=== PATIENT | male | born 1955 ===

== ENCOUNTER 2022-05-06 21:45 | Inpatient (IN) | payer BC, MEDICARE ==
[2022-05-06 22:21] LABS: #Monocytes 0.7 10x3/uL (0.0-1.1); #Neutrophils 7.9 10x3/uL (1.5-8.4); %Basophils 0.3 % (0.0-2.0); %Eosinophils 0.1 % (0.0-6.0); %Lymphocytes 26.2 % (18.0-47.0); %Monocytes 5.7 % (0.0-10.0); %Neutrophils 67.4 % (40.0-75.0); Hemoglobin 17.1 g/dL (13.5-17.5); Mean Corpuscular HGB CONC 32.6 g/dL (32.0-36.0); Mean Corpuscular Hemoglobin 27.9 pg (27.0-33.0); Mean Corpuscular Volume 85.8 fl (81.2-95.1); Mean Platelet Volume 11.4 fl (7.4-10.4); Platelet Count 223 10x3/uL (150-450); Red Blood Cell (RBC) Count 6.12 10x6/uL (4.32-5.72); White Blood Cell (WBC) Count 11.7 10x3/uL (3.5-10.5)
[2022-05-06 22:34] LABS: ALT (SGPT) 30 U/L (8-55); AST (SGOT) 151 U/L (5-34); Albumin 4.5 g/dL (3.4-4.8); Alkaline Phosphatase 65 U/L (40-110); Anion Gap 26 mmol/L (10-20); BUN (Urea Nitrogen) 19 mg/dL (8.4-25.7); Calc. Creatinine Clearance 0 mL/min (70-130); Calcium 10.1 mg/dL (7.8-10.44); Carbon Dioxide 23 mmol/L (23-31); Chloride 96 mmol/L (98-107); Estimated GFR 40; Globulin 3.6 g/dL (2.4-3.5); Glucose 308 mg/dL (80-115); Magnesium 2.3 mg/dL (1.6-2.6); Potassium 4.1 mmol/L (3.5-5.1); Protein, Total 8.1 g/dL (5.8-8.1); Sodium 141 mmol/L (136-145)
[2022-05-06 22:35] LABS: INR-International Normal Ratio 1.1; PTT 29.3 sec (22.0-33.0); Prothrombin Time 11.4 sec (9.5-12.1)
[2022-05-06 22:42] LABS: D-Dimer Test 0.43 mg/L FEU (0.19-0.50)
[2022-05-06] MEDS ORDERED: NOREPINEPHRINE 8 MG/250 ML-D5W 250 ML ONE (22:43)
[2022-05-06] MEDS ORDERED: Furosemide 100 MG/10 ML VIAL ONE (22:43)
[2022-05-06 22:55] LABS: Actual Bicarbonate (HCO3a) 23.7 mEq/L (22-28); Base Excess (BEa) -0.1 mEq/L (-2.0 to +3.0); CO2 Tension 36.4 mmHg (35.0-45.0); Calcium, Ionized (arterial) 1.15 mmol/L (1.12-1.30); Carboxyhemoglobin (COHb) 1.1 gm% (0.0-3.0); Critical Notified By: CP.PH; Hemoglobin (Hb) 16.7 g/dL (14.0-18.0); O2 Tension (PaO2), arterial 74.6 mmHg (> 80.0); Potassium - ABG Lab 3.7 mmol/L (3.70-5.30); Puncture Site RRA; RapidComm Collect By CP.PH; pH, Arterial 7.43 (7.35-7.45)
[2022-05-06 22:56] LABS: SARS-CoV-2 NAA Rapid Test Not Detected (NotDetected)
[2022-05-06 23:04] LABS: CKMB 86.8 ng/mL (0-6.6)
[2022-05-06] MEDS ORDERED: Aspirin Chewable 81 MG TAB ONE (23:09)
[2022-05-07 00:43] LABS: Troponin I 12.463 ng/mL (< 0.028)
[2022-05-07 01:01] LABS: Lactic Acid 3.7 mmol/L (0.5-2.2)
[2022-05-07] MEDS ORDERED: Furosemide 100 MG/10 ML VIAL SLOW IVP SCH ×2 (01:45→06:00)
[2022-05-07] MEDS ORDERED: Dextrose 50% Abboject 50 ML SYRINGE SLOW IVP PRN (01:52)
[2022-05-07] MEDS ORDERED: Dextrose 5% in Water 1,000 ML IV PRN (01:52)
[2022-05-07] MEDS ORDERED: Nitroglycerin 2% Ointment 1 INCH/1 GM Packet TOP SCH (02:00)
[2022-05-07] MEDS ORDERED: Carvedilol 25 MG TAB PO SCH (02:00)
[2022-05-07] MEDS ORDERED: Rivaroxaban 10 MG TAB PO SCH (02:00)
[2022-05-07] MEDS ORDERED: Non-Formulary Medication 1 EACH (Semaglutide [Ozempic] 1 MG/0.75 ML Pen.Injctr) SQ SCH (02:00)
[2022-05-07 02:47] LABS: #Monocytes 0.9 10x3/uL (0.0-1.1); #Neutrophils 8.1 10x3/uL (1.5-8.4); %Basophils 0.3 % (0.0-2.0); %Eosinophils 0.1 % (0.0-6.0); %Lymphocytes 23.2 % (18.0-47.0); %Monocytes 7.8 % (0.0-10.0); %Neutrophils 68.3 % (40.0-75.0); Hemoglobin 15.4 g/dL (13.5-17.5); Mean Corpuscular Hemoglobin 28.3 pg (27.0-33.0); Mean Corpuscular Volume 85.7 fl (81.2-95.1); Mean Platelet Volume 11.4 fl (7.4-10.4); Platelet Count 167 10x3/uL (150-450); Red Blood Cell (RBC) Count 5.45 10x6/uL (4.32-5.72); White Blood Cell (WBC) Count 11.8 10x3/uL (3.5-10.5)
[2022-05-07 03:03] LABS: Magnesium 2.3 mg/dL (1.6-2.6)
[2022-05-07 05:01] LABS: Anion Gap 26 mmol/L (10-20); BUN (Urea Nitrogen) 22 mg/dL (8.4-25.7); Calc. Creatinine Clearance 68 mL/min (70-130); Calcium 9.7 mg/dL (7.8-10.44); Carbon Dioxide 21 mmol/L (23-31); Chloride 96 mmol/L (98-107); Estimated GFR 40; Glucose 312 mg/dL (80-115); Sodium 139 mmol/L (136-145); Uric Acid 7.1 mg/dL (3.5-7.2)
[2022-05-07 05:10] LABS: Troponin I 27.104 ng/mL (< 0.028)
[2022-05-07] MEDS: Furosemide 100 MG/10 ML VIAL SLOW IVP SCH ×2 (06:05→17:55)
[2022-05-07] MEDS: HumaLOG 300 UNITS/3 ML VIAL SC PRN ×4 (06:06→21:02)
[2022-05-07] MEDS: Aspirin 81 mg Enteric Coated Tablet PO SCH (08:56)
[2022-05-07] MEDS: Spironolactone 25 MG TAB PO SCH (08:56)
[2022-05-07] MEDS: Empagliflozin 25 MG TAB PO SCH (08:56)
[2022-05-07] MEDS: Lantus 1000 UNITS/10 ML VIAL SC SCH ×2 (08:56→21:02)
[2022-05-07] MEDS ORDERED: Aspirin Chewable 81 MG TAB PO SCH (09:00)
[2022-05-07] MEDS: Carvedilol 25 MG TAB PO SCH ×2 (09:24→17:55)
[2022-05-07] MEDS: Lisinopril 20 MG TAB PO SCH (09:24)
[2022-05-07] MEDS ORDERED: Amlodipine 10 MG TAB PO SCH (21:00)
[2022-05-07] MEDS: Rivaroxaban 10 MG TAB PO SCH (21:03)
[2022-05-07] MEDS: Rosuvastatin 20 MG TAB PO SCH (21:03)
[2022-05-08] MEDS: HumaLOG 300 UNITS/3 ML VIAL SC PRN ×4 (01:03→21:10)
[2022-05-08 04:02] LABS: #Eosinphils 0.1 10x3/uL (0.0-0.5); #Monocytes 1.2 10x3/uL (0.0-1.1); #Neutrophils 10.7 10x3/uL (1.5-8.4); %Basophils 0.2 % (0.0-2.0); %Eosinophils 0.8 % (0.0-6.0); %Lymphocytes 17.7 % (18.0-47.0); %Monocytes 7.9 % (0.0-10.0); %Neutrophils 72.9 % (40.0-75.0); Hemoglobin 14.2 g/dL (13.5-17.5); Mean Corpuscular Volume 84.8 fl (81.2-95.1); Mean Platelet Volume 11.2 fl (7.4-10.4); Platelet Count 161 10x3/uL (150-450); Red Blood Cell (RBC) Count 5.07 10x6/uL (4.32-5.72); White Blood Cell (WBC) Count 14.7 10x3/uL (3.5-10.5)
[2022-05-08 04:09] LABS: ALT (SGPT) 35 U/L (8-55); AST (SGOT) 166 U/L (5-34); Albumin 3.4 g/dL (3.4-4.8); Alkaline Phosphatase 45 U/L (40-110); Anion Gap 16 mmol/L (10-20); BUN (Urea Nitrogen) 36 mg/dL (8.4-25.7); Calc. Creatinine Clearance 55 mL/min (70-130); Calcium 9.2 mg/dL (7.8-10.44); Carbon Dioxide 25 mmol/L (23-31); Chloride 97 mmol/L (98-107); Estimated GFR 31; Globulin 3.2 g/dL (2.4-3.5); Glucose 193 mg/dL (80-115); Potassium 3.3 mmol/L (3.5-5.1); Protein, Total 6.6 g/dL (5.8-8.1); Sodium 135 mmol/L (136-145)
[2022-05-08 04:32] LABS: Troponin I 107.113 ng/mL (< 0.028)
[2022-05-08] MEDS ORDERED: DOBUTamine 500 mg/250 ml 250 ML ONE (05:19)
[2022-05-08] MEDS: DOBUTamine 500 mg/250 ml 500 MG in Premix Bag 1 BAG IVPB SCH ×2 (05:28→17:38)
[2022-05-08] MEDS: DOPamine 400 MG/D5W 250 ML 250 ML IVPB SCH ×5 (06:22→20:42)
[2022-05-08] MEDS: Spironolactone 25 MG TAB PO SCH (08:14)
[2022-05-08] MEDS: Carvedilol 25 MG TAB PO SCH ×2 (08:14→16:39)
[2022-05-08] MEDS: Furosemide 20 MG TAB PO SCH ×2 (08:15→13:19)
[2022-05-08] MEDS: Aspirin 81 mg Enteric Coated Tablet PO SCH (08:15)
[2022-05-08] MEDS: Lisinopril 20 MG TAB PO SCH (08:15)
[2022-05-08] MEDS: Lantus 1000 UNITS/10 ML VIAL SC SCH ×2 (08:15→21:02)
[2022-05-08] MEDS ORDERED: Potassium Chloride 20 MEQ TAB PO SCH (08:45)
[2022-05-08] MEDS: Rosuvastatin 20 MG TAB PO SCH (21:02)
[2022-05-08] MEDS: Rivaroxaban 10 MG TAB PO SCH ×2 (21:11→21:33)
[2022-05-09] MEDS: HumaLOG 300 UNITS/3 ML VIAL SC PRN ×4 (00:30→20:58)
[2022-05-09] MEDS: DOPamine 400 MG/D5W 250 ML 250 ML IVPB SCH ×4 (00:54→20:59)
[2022-05-09 05:01] LABS: #Monocytes 1.4 10x3/uL (0.0-1.1); #Neutrophils 13.1 10x3/uL (1.5-8.4); %Basophils 0.2 % (0.0-2.0); %Lymphocytes 11.9 % (18.0-47.0); %Monocytes 8.5 % (0.0-10.0); %Neutrophils 78.8 % (40.0-75.0); Hemoglobin 14.3 g/dL (13.5-17.5); Mean Corpuscular HGB CONC 33.5 g/dL (32.0-36.0); Mean Corpuscular Hemoglobin 28.1 pg (27.0-33.0); Mean Corpuscular Volume 83.9 fl (81.2-95.1); Platelet Count 155 10x3/uL (150-450); RBC Distribution Width 12.7 % (11.5-14.5); Red Blood Cell (RBC) Count 5.09 10x6/uL (4.32-5.72); White Blood Cell (WBC) Count 16.6 10x3/uL (3.5-10.5)
[2022-05-09 05:08] LABS: ALT (SGPT) 29 U/L (8-55); AST (SGOT) 80 U/L (5-34); Albumin 3.4 g/dL (3.4-4.8); Alkaline Phosphatase 51 U/L (40-110); Anion Gap 17 mmol/L (10-20); BUN (Urea Nitrogen) 47 mg/dL (8.4-25.7); Bilirubin, Total 1.1 mg/dL (0.2-1.2); Calc. Creatinine Clearance 55 mL/min (70-130); Calcium 9.3 mg/dL (7.8-10.44); Carbon Dioxide 25 mmol/L (23-31); Chloride 95 mmol/L (98-107); Estimated GFR 31; Globulin 3.9 g/dL (2.4-3.5); Glucose 226 mg/dL (80-115); Potassium 3.7 mmol/L (3.5-5.1); Protein, Total 7.3 g/dL (5.8-8.1); Sodium 133 mmol/L (136-145)
[2022-05-09] MEDS: DOBUTamine 500 mg/250 ml 500 MG in Premix Bag 1 BAG IVPB SCH ×2 (05:42→21:00)
[2022-05-09] MEDS ORDERED: Carvedilol 12.5 MG TAB PO SCH (08:00)
[2022-05-09] MEDS: Ondansetron PF 4 MG/2 ML Vial IVP PRN ×2 (08:40→20:50)
[2022-05-09] MEDS: Spironolactone 25 MG TAB PO SCH (08:44)
[2022-05-09] MEDS: Aspirin 81 mg Enteric Coated Tablet PO SCH (08:44)
[2022-05-09] MEDS: Empagliflozin 25 MG TAB PO SCH (08:44)
[2022-05-09] MEDS ORDERED: Iopamidol 300 61% 100 ML VIAL FS ONE (08:57)
[2022-05-09] MEDS ORDERED: Lisinopril 20 MG TAB PO SCH (09:00)
[2022-05-09] MEDS ORDERED: Vancomycin 1.5 GRAM/300 ML BAG 1.5 GM in Premix Bag 1 BAG IVPB SCH (10:00)
[2022-05-09] MEDS: Carvedilol 25 MG TAB PO SCH (12:16)
[2022-05-09] MEDS: Lisinopril 20 MG TAB PO SCH (12:16)
[2022-05-09] MEDS: Lantus 1000 UNITS/10 ML VIAL SC SCH ×2 (12:16→20:58)
[2022-05-09] MEDS ORDERED: Nitroglycerin 50 MG/250 ML BOT 0 ML ONE (12:21)
[2022-05-09] MEDS ORDERED: Heparin 10,000 UNITS/ 10 ML VIAL ONE ×2 (12:22→14:39)
[2022-05-09] MEDS ORDERED: Adenosine 6 MG/2 ML VIAL ONE (12:22)
[2022-05-09] MEDS ORDERED: Lidocaine 1% (PF) 30 ML VIAL ONE (12:22)
[2022-05-09] MEDS ORDERED: Sodium Chloride 0.9% 1,000 ML ONE (12:23)
[2022-05-09] MEDS ORDERED: Fentanyl 100 MCG/2 ML VIAL ONE (13:22)
[2022-05-09] MEDS ORDERED: Midazolam HCl 2 mg/2 ml Vial ONE (13:22)
[2022-05-09] MEDS ORDERED: TICAGRELOR 90 MG TABLET ONE (14:16)
[2022-05-09] MEDS ORDERED: DOBUTamine 500 mg/250 ml 250 ML ONE (14:39)
[2022-05-09] MEDS ORDERED: Heparin 25,000 units/D5W 500 ML ONE (16:03)
[2022-05-09] MEDS ORDERED: Morphine 4 MG/ML VIAL SLOW IVP PRN (17:00)
[2022-05-09] MEDS ORDERED: Sodium Chloride 0.9% 500 ML IV SCH (17:00)
[2022-05-09] MEDS ORDERED: Morphine 2 MG/ML VIAL SLOW IVP PRN (17:00)
[2022-05-09] MEDS ORDERED: Heparin 25,000 units/D5W 500 ML IV SCH (17:00)
[2022-05-09] MEDS ORDERED: Acetaminophen/Codeine 30-300mg Tablet PO PRN ×2 (17:00)
[2022-05-09] MEDS ORDERED: Heparin 10,000 UNITS/1 ML VIAL 50,000 UNITS in Dextrose 5% in Water 1,000 ML FS SCH (17:00)
[2022-05-09] MEDS: Sodium Chloride 0.9% 1,000 ML IV SCH (17:15)
[2022-05-09] MEDS: Cefepime 1 GM in Sodium Chloride 0.9% 100 ML IVPB SCH (18:19)
[2022-05-09] MEDS: TICAGRELOR 90 MG TABLET PO SCH (20:56)
[2022-05-09] MEDS: Rosuvastatin 20 MG TAB PO SCH (20:57)
[2022-05-09] MEDS: ALPRAZolam 0.5 MG TAB PO PRN (20:57)
[2022-05-09] MEDS ORDERED: Rivaroxaban 10 MG TAB PO SCH (21:00)
[2022-05-09] MEDS ORDERED: Lorazepam 2 MG/ML VIAL SLOW IVP SCH (23:45)
[2022-05-10] MEDS: HumaLOG 300 UNITS/3 ML VIAL SC PRN ×5 (00:03→20:49)
[2022-05-10] MEDS: Cefepime 1 GM in Sodium Chloride 0.9% 100 ML IVPB SCH ×2 (01:04→13:10)
[2022-05-10] MEDS: Sodium Chloride 0.9% 1,000 ML IV SCH (04:15)
[2022-05-10 04:29] LABS: #Monocytes 1.1 10x3/uL (0.0-1.1); #Neutrophils 9.2 10x3/uL (1.5-8.4); %Basophils 0.2 % (0.0-2.0); %Eosinophils 0.1 % (0.0-6.0); %Monocytes 9.2 % (0.0-10.0); %Neutrophils 81.1 % (40.0-75.0); Hemoglobin 13.3 g/dL (13.5-17.5); Mean Corpuscular HGB CONC 33.6 g/dL (32.0-36.0); Mean Corpuscular Hemoglobin 28.7 pg (27.0-33.0); Mean Corpuscular Volume 85.3 fl (81.2-95.1); Mean Platelet Volume 11.9 fl (7.4-10.4); Platelet Count 135 10x3/uL (150-450); RBC Distribution Width 12.7 % (11.5-14.5); Red Blood Cell (RBC) Count 4.64 10x6/uL (4.32-5.72); White Blood Cell (WBC) Count 11.4 10x3/uL (3.5-10.5)
[2022-05-10 04:33] LABS: ALT (SGPT) 27 U/L (8-55); AST (SGOT) 152 U/L (5-34); Alkaline Phosphatase 48 U/L (40-110); Anion Gap 16 mmol/L (10-20); BUN (Urea Nitrogen) 56 mg/dL (8.4-25.7); Bilirubin, Total 1.9 mg/dL (0.2-1.2); Calc. Creatinine Clearance 56 mL/min (70-130); Carbon Dioxide 23 mmol/L (23-31); Chloride 96 mmol/L (98-107); Estimated GFR 32; Globulin 4.4 g/dL (2.4-3.5); Glucose 223 mg/dL (80-115); Potassium 3.1 mmol/L (3.5-5.1); Protein, Total 7.4 g/dL (5.8-8.1); Sodium 132 mmol/L (136-145)
[2022-05-10] MEDS ORDERED: Potassium Bicarbonate/Cit Ac 20 MEQ TAB PO SCH (05:00)
[2022-05-10] MEDS ORDERED: Potassium Chloride 20 MEQ in Premix Bag 1 BAG IVPB SCH (05:15)
[2022-05-10 05:22] LABS: Magnesium 2.9 mg/dL (1.6-2.6)
[2022-05-10] MEDS ORDERED: DOBUTamine 500 mg/250 ml 250 ML ONE (07:59)
[2022-05-10] MEDS: Lisinopril 20 MG TAB PO SCH (08:15)
[2022-05-10] MEDS: Carvedilol 12.5 MG TAB PO SCH ×2 (08:15→18:49)
[2022-05-10] MEDS: Aspirin Chewable 81 MG TAB PO SCH (08:15)
[2022-05-10] MEDS: Spironolactone 25 MG TAB PO SCH (08:16)
[2022-05-10] MEDS: DOPamine 400 MG/D5W 250 ML 250 ML IVPB SCH ×2 (08:18→16:26)
[2022-05-10] MEDS: Lantus 1000 UNITS/10 ML VIAL SC SCH ×2 (08:35→20:43)
[2022-05-10] MEDS: Vancomycin HCl 1 GM in Sodium Chloride 0.9% 250 ML 250 ML IVPB SCH (08:35)
[2022-05-10] MEDS: TICAGRELOR 90 MG TABLET PO SCH ×2 (08:35→22:09)
[2022-05-10] MEDS ORDERED: Aspirin Chewable 81 MG TAB PO SCH (09:00)
[2022-05-10] MEDS ORDERED: Dronedarone HCl 400 MG TAB PO SCH ×2 (11:15→21:00)
[2022-05-10] MEDS ORDERED: Heparin 1,000 UNITS/ML VIAL SLOW IVP SCH (12:30)
[2022-05-10 12:33] LABS: Actual Bicarbonate (HCO3a) 25.4 mEq/L (22-28); Base Excess (BEa) 1.6 mEq/L (-2.0 to +3.0); CO2 Tension 37.4 mmHg (35.0-45.0); Calcium, Ionized (arterial) 1.11 mmol/L (1.12-1.30); Carboxyhemoglobin (COHb) 1.5 gm% (0.0-3.0); Hemoglobin (Hb) 13.4 g/dL (14.0-18.0); O2 Tension (PaO2), arterial 86.8 mmHg (> 80.0); Potassium - ABG Lab 3.2 mmol/L (3.70-5.30); Puncture Site LRA; pH, Arterial 7.45 (7.35-7.45)
[2022-05-10] MEDS ORDERED: Protamine Sulfate 50 MG/5 ML VIAL SLOW IVP SCH (17:00)
[2022-05-10] MEDS ORDERED: Amiodarone In Dextrose 150 MG in Premix Bag 1 BAG IVPB SCH (18:30)
[2022-05-10] MEDS: Amiodarone In Dextrose 360 MG in Premix Bag 1 BAG IVPB SCH (18:41)
[2022-05-10] MEDS ORDERED: Digoxin 0.5 MG/2 ML AMP SLOW IVP SCH (18:45)
[2022-05-10] MEDS: DOBUTamine 500 mg/250 ml 500 MG in Premix Bag 1 BAG IVPB SCH (19:52)
[2022-05-10] MEDS: Rosuvastatin 20 MG TAB PO SCH (22:09)
[2022-05-10] MEDS: ALPRAZolam 0.5 MG TAB PO PRN (22:09)
[2022-05-11] MEDS: HumaLOG 300 UNITS/3 ML VIAL SC PRN ×4 (00:04→21:23)
[2022-05-11] MEDS: Amiodarone In Dextrose 360 MG in Premix Bag 1 BAG IVPB SCH ×2 (00:23→12:33)
[2022-05-11] MEDS: Cefepime 1 GM in Sodium Chloride 0.9% 100 ML IVPB SCH (02:00)
[2022-05-11] MEDS: Ondansetron PF 4 MG/2 ML Vial IVP PRN ×4 (03:30→21:46)
[2022-05-11] MEDS ORDERED: Famotidine/PF 20 mg/2ml Vial SLOW IVP SCH (04:00)
[2022-05-11] MEDS ORDERED: Calcium Carbonate 500 MG ChewTAB PO SCH (04:00)
[2022-05-11 04:23] LABS: #Monocytes 1.5 10x3/uL (0.0-1.1); #Neutrophils 9.4 10x3/uL (1.5-8.4); %Basophils 0.2 % (0.0-2.0); %Eosinophils 0.2 % (0.0-6.0); %Lymphocytes 9.6 % (18.0-47.0); %Monocytes 12.5 % (0.0-10.0); Mean Corpuscular HGB CONC 32.7 g/dL (32.0-36.0); Mean Corpuscular Hemoglobin 27.8 pg (27.0-33.0); Mean Platelet Volume 12.2 fl (7.4-10.4); Platelet Count 133 10x3/uL (150-450); Red Blood Cell (RBC) Count 4.67 10x6/uL (4.32-5.72); White Blood Cell (WBC) Count 12.2 10x3/uL (3.5-10.5)
[2022-05-11 04:37] LABS: Anion Gap 19 mmol/L (10-20); BUN (Urea Nitrogen) 65 mg/dL (8.4-25.7); Calc. Creatinine Clearance 44 mL/min (70-130); Calcium 9.1 mg/dL (7.8-10.44); Carbon Dioxide 21 mmol/L (23-31); Chloride 96 mmol/L (98-107); Estimated GFR 23; Glucose 245 mg/dL (80-115); Magnesium 2.9 mg/dL (1.6-2.6); Potassium 3.4 mmol/L (3.5-5.1); Sodium 133 mmol/L (136-145)
[2022-05-11] MEDS: DOPamine 400 MG/D5W 250 ML 250 ML IVPB SCH ×6 (04:48→23:26)
[2022-05-11] MEDS: DOBUTamine 500 mg/250 ml 500 MG in Premix Bag 1 BAG IVPB SCH ×2 (06:09→13:32)
[2022-05-11] MEDS: ALPRAZolam 0.5 MG TAB PO PRN (06:09)
[2022-05-11] MEDS ORDERED: SODIUM CHLORIDE IVPB SCH (06:45)
[2022-05-11] MEDS ORDERED: PROMETHAZINE HCL IVPB SCH (06:45)
[2022-05-11] MEDS ORDERED: ADMIXTURE FEE IVPB SCH (06:45)
[2022-05-11] MEDS: Vancomycin HCl 1 GM in Sodium Chloride 0.9% 250 ML 250 ML IVPB SCH (08:29)
[2022-05-11 08:32] LABS: Vancomycin, Trough 14.8 ug/mL
[2022-05-11] MEDS: Aspirin Chewable 81 MG TAB PO SCH (08:34)
[2022-05-11] MEDS: Empagliflozin 25 MG TAB PO SCH (08:35)
[2022-05-11] MEDS: Spironolactone 25 MG TAB PO SCH (08:35)
[2022-05-11] MEDS: TICAGRELOR 90 MG TABLET PO SCH ×2 (08:35→21:19)
[2022-05-11] MEDS: Lantus 1000 UNITS/10 ML VIAL SC SCH ×2 (08:41→21:19)
[2022-05-11] MEDS: Carvedilol 12.5 MG TAB PO SCH ×2 (08:51→18:05)
[2022-05-11] MEDS: Lisinopril 20 MG TAB PO SCH (08:51)
[2022-05-11] MEDS ORDERED: Sodium Chloride 0.9% 1,000 ML IV SCH (13:00)
[2022-05-11] MEDS ORDERED: Sodium Chloride 0.9% 200 ML IVPB SCH (13:00)
[2022-05-11] MEDS: Sodium Chloride 0.9% 1,000 ML IV SCH (19:30)
[2022-05-11] MEDS: Amiodarone 200 MG TAB PO SCH (21:19)
[2022-05-11] MEDS: Rosuvastatin 20 MG TAB PO SCH (21:19)
[2022-05-12] MEDS: DOBUTamine 500 mg/250 ml 500 MG in Premix Bag 1 BAG IVPB SCH ×4 (01:13→21:07)
[2022-05-12] MEDS: Sodium Chloride 0.9% 1,000 ML IV SCH ×2 (01:17→17:01)
[2022-05-12] MEDS: HumaLOG 300 UNITS/3 ML VIAL SC PRN ×2 (02:21→20:50)
[2022-05-12 03:28] LABS: #Monocytes 1.2 10x3/uL (0.0-1.1); #Neutrophils 8.6 10x3/uL (1.5-8.4); %Basophils 0.2 % (0.0-2.0); %Eosinophils 0.4 % (0.0-6.0); %Lymphocytes 7.6 % (18.0-47.0); %Monocytes 10.9 % (0.0-10.0); %Neutrophils 80.5 % (40.0-75.0); Hemoglobin 11.2 g/dL (13.5-17.5); Mean Corpuscular HGB CONC 32.8 g/dL (32.0-36.0); Mean Corpuscular Volume 85.3 fl (81.2-95.1); Mean Platelet Volume 12.1 fl (7.4-10.4); Platelet Count 138 10x3/uL (150-450); RBC Distribution Width 13.1 % (11.5-14.5); White Blood Cell (WBC) Count 10.6 10x3/uL (3.5-10.5)
[2022-05-12 03:49] LABS: Albumin 3.1 g/dL (3.4-4.8); Anion Gap 19 mmol/L (10-20); BUN (Urea Nitrogen) 76 mg/dL (8.4-25.7); Calc. Creatinine Clearance 27 mL/min (70-130); Calcium 8.4 mg/dL (7.8-10.44); Carbon Dioxide 18 mmol/L (23-31); Chloride 97 mmol/L (98-107); Estimated GFR 13; Glucose 212 mg/dL (80-115); Magnesium 2.7 mg/dL (1.6-2.6); Phosphorus 4.6 mg/dL (2.3-4.7); Potassium 3.4 mmol/L (3.5-5.1); Sodium 131 mmol/L (136-145)
[2022-05-12] MEDS: ALPRAZolam 0.5 MG TAB PO PRN (03:55)
[2022-05-12] MEDS: Ondansetron PF 4 MG/2 ML Vial IVP PRN ×2 (03:55→17:36)
[2022-05-12] MEDS: DOPamine 400 MG/D5W 250 ML 250 ML IVPB SCH ×3 (05:21→17:01)
[2022-05-12] MEDS: Carvedilol 12.5 MG TAB PO SCH (08:19)
[2022-05-12] MEDS: Lisinopril 20 MG TAB PO SCH (08:20)
[2022-05-12] MEDS ORDERED: Bisacodyl 10 MG SUPP PR SCH (10:00)
[2022-05-12] MEDS: Amiodarone 200 MG TAB PO SCH ×2 (10:00→20:40)
[2022-05-12] MEDS: Aspirin Chewable 81 MG TAB PO SCH (10:00)
[2022-05-12] MEDS: Spironolactone 25 MG TAB PO SCH (10:00)
[2022-05-12] MEDS: TICAGRELOR 90 MG TABLET PO SCH ×2 (10:00→20:40)
[2022-05-12] MEDS ORDERED: Promethazine HCl 25 MG in Sodium Chloride 0.9% 50 ML IVPB SCH (10:00)
[2022-05-12] MEDS: Lantus 1000 UNITS/10 ML VIAL SC SCH ×2 (10:04→20:40)
[2022-05-12] MEDS ORDERED: Digoxin 0.5 MG/2 ML AMP SLOW IVP SCH (10:30)
[2022-05-12] MEDS ORDERED: Carvedilol 6.25 MG TAB PO SCH (11:00)
[2022-05-12] MEDS: Carvedilol 6.25 MG TAB PO SCH (17:03)
[2022-05-12] MEDS: Rosuvastatin 20 MG TAB PO SCH (20:40)
[2022-05-13] MEDS: Sodium Bicarbonate Tab 325 MG TAB PO SCH ×3 (00:39→15:47)
[2022-05-13] MEDS: Sodium Chloride 0.9% 1,000 ML IV SCH ×3 (00:42→21:06)
[2022-05-13] MEDS: DOPamine 400 MG/D5W 250 ML 250 ML IVPB SCH ×3 (01:05→14:24)
[2022-05-13 04:42] LABS: Albumin 2.8 g/dL (3.4-4.8); Anion Gap 19 mmol/L (10-20); BUN (Urea Nitrogen) 86 mg/dL (8.4-25.7); BUN/Creatinine Ratio 12.89; Calc. Creatinine Clearance 17 mL/min (70-130); Calcium 7.9 mg/dL (7.8-10.44); Carbon Dioxide 20 mmol/L (23-31); Chloride 95 mmol/L (98-107); Estimated GFR 9; Glucose 196 mg/dL (80-115); Magnesium 2.7 mg/dL (1.6-2.6); Phosphorus 5.7 mg/dL (2.3-4.7); Potassium 3.5 mmol/L (3.5-5.1); Sodium 130 mmol/L (136-145)
[2022-05-13] MEDS: HumaLOG 300 UNITS/3 ML VIAL SC PRN ×4 (04:45→16:00)
[2022-05-13] MEDS ORDERED: Sodium Bicarbonate Tab 325 MG TAB PO SCH (05:30)
[2022-05-13] MEDS ORDERED: Digoxin 0.125 MG TAB PO SCH (09:00)
[2022-05-13] MEDS: Aspirin Chewable 81 MG TAB PO SCH (09:18)
[2022-05-13] MEDS: TICAGRELOR 90 MG TABLET PO SCH ×2 (09:18→21:03)
[2022-05-13] MEDS: Amiodarone 200 MG TAB PO SCH ×2 (09:19→21:03)
[2022-05-13] MEDS: Empagliflozin 25 MG TAB PO SCH (09:19)
[2022-05-13] MEDS: Ondansetron PF 4 MG/2 ML Vial IVP PRN (09:31)
[2022-05-13] MEDS: Lantus 1000 UNITS/10 ML VIAL SC SCH (09:42)
[2022-05-13] MEDS: Carvedilol 6.25 MG TAB PO SCH ×2 (10:57→15:47)
[2022-05-13] MEDS: DOBUTamine 500 mg/250 ml 500 MG in Premix Bag 1 BAG IVPB SCH (14:26)
[2022-05-13] MEDS ORDERED: Lantus 1000 UNITS/10 ML VIAL SC SCH (21:00)
[2022-05-13] MEDS: Rosuvastatin 20 MG TAB PO SCH (21:02)
[2022-05-13] MEDS ORDERED: Sodium Chloride 0.9% 1,000 ML IV SCH (22:00)
[2022-05-13] MEDS ORDERED: Furosemide 100 MG, Admixture Fee 1 EACH in Sodium Chloride 0.9% 90 ML IVPB SCH (22:00)
[2022-05-14] MEDS: Sodium Bicarbonate Tab 325 MG TAB PO SCH ×2 (00:28→08:47)
[2022-05-14] MEDS: DOBUTamine 500 mg/250 ml 500 MG in Premix Bag 1 BAG IVPB SCH (02:40)
[2022-05-14] MEDS: DOPamine 400 MG/D5W 250 ML 250 ML IVPB SCH (02:40)
[2022-05-14 04:32] LABS: Anion Gap 19 mmol/L (10-20); BUN (Urea Nitrogen) 91 mg/dL (8.4-25.7); Calc. Creatinine Clearance 17 mL/min (70-130); Calcium 7.8 mg/dL (7.8-10.44); Carbon Dioxide 18 mmol/L (23-31); Chloride 94 mmol/L (98-107); Estimated GFR 7; Glucose 133 mg/dL (80-115); Potassium 3.3 mmol/L (3.5-5.1); Sodium 128 mmol/L (136-145)
[2022-05-14 05:40] VITALS: BP 127/76; TEMP 98.7
[2022-05-14 05:45] VITALS: BMI 49.5
[2022-05-14] MEDS: TICAGRELOR 90 MG TABLET PO SCH (08:47)
[2022-05-14] MEDS: Aspirin Chewable 81 MG TAB PO SCH (08:47)
[2022-05-14] MEDS: Ondansetron PF 4 MG/2 ML Vial IVP PRN (08:47)
[2022-05-14] MEDS: Amiodarone 200 MG TAB PO SCH (08:47)
== END 2022-05-14 11:40 | disposition expired | DRG 215 ==
LOC: CSHERS 21:45 → CSHICU 05-07 01:53
PROVIDERS: ADMIT Family Medicine; ATTEND Internal Medicine
PROC: 5A09357 Assistance with Respiratory Ventilation, Less than 24 Consecutive Hours, Continuous Positive Airway Pressure (ICD-10-PCS; 2022-05-07)
PROC: 3E033XZ Introduction of Vasopressor into Peripheral Vein, Percutaneous Approach (ICD-10-PCS; 2022-05-07)
PROC: 02HA3RZ Insertion of Short-term External Heart Assist System into Heart, Percutaneous Approach (ICD-10-PCS; principal; 2022-05-09)
PROC: 5A0221D Assistance with Cardiac Output using Impeller Pump, Continuous (ICD-10-PCS; 2022-05-09)
PROC: 027034Z Dilation of Coronary Artery, One Artery with Drug-eluting Intraluminal Device, Percutaneous Approach (ICD-10-PCS; 2022-05-09)
PROC: 4A023N7 Measurement of Cardiac Sampling and Pressure, Left Heart, Percutaneous Approach (ICD-10-PCS; 2022-05-09)
PROC: B2111ZZ Fluoroscopy of Multiple Coronary Arteries using Low Osmolar Contrast (ICD-10-PCS; 2022-05-09)
PROC: B2151ZZ Fluoroscopy of Left Heart using Low Osmolar Contrast (ICD-10-PCS; 2022-05-09)
PROC: B241ZZ3 Ultrasonography of Multiple Coronary Arteries, Intravascular (ICD-10-PCS; 2022-05-09)
PROC: 02WAXRZ Revision of Short-term External Heart Assist System in Heart, External Approach (ICD-10-PCS; 2022-05-09)
PROC: 02PA3RZ Removal of Short-term External Heart Assist System from Heart, Percutaneous Approach (ICD-10-PCS; 2022-05-10)
PROC: 5A09457 Assistance with Respiratory Ventilation, 24-96 Consecutive Hours, Continuous Positive Airway Pressure (ICD-10-PCS; 2022-05-10)
DX: I21.4 Non-ST elevation (NSTEMI) myocardial infarction (principal); A41.9 Sepsis, unspecified organism; I50.23 Acute on chronic systolic (congestive) heart failure; J96.01 Acute respiratory failure with hypoxia; N17.0 Acute kidney failure with tubular necrosis; I13.0 Hypertensive heart and chronic kidney disease with heart failure and stage 1 through stage 4 chronic kidney disease, or unspecified chronic kidney disease; N17.9 Acute kidney failure, unspecified; E87.1 Hypo-osmolality and hyponatremia; Z68.42 Body mass index [BMI] 45.0-49.9, adult; M10.9 Gout, unspecified; E11.22 Type 2 diabetes mellitus with diabetic chronic kidney disease; E78.5 Hyperlipidemia, unspecified; I25.10 Atherosclerotic heart disease of native coronary artery without angina pectoris; Z20.822 Contact with and (suspected) exposure to COVID-19; E11.65 Type 2 diabetes mellitus with hyperglycemia; I25.118 Atherosclerotic heart disease of native coronary artery with other forms of angina pectoris; E66.01 Morbid (severe) obesity due to excess calories; N18.32 Chronic kidney disease, stage 3b; I25.5 Ischemic cardiomyopathy; I48.0 Paroxysmal atrial fibrillation; R57.0 Cardiogenic shock; E87.6 Hypokalemia; Z88.8 Allergy status to other drugs, medicaments and biological substances; Z79.82 Long term (current) use of aspirin; Z95.810 Presence of automatic (implantable) cardiac defibrillator; Z79.01 Long term (current) use of anticoagulants; Z79.4 Long term (current) use of insulin; Z79.899 Other long term (current) drug therapy; I25.2 Old myocardial infarction; Z98.890 Other specified postprocedural states
CPT/HCPCS: 33990; 36415; 36416; 36600; 71045; 74018; 80048; 80053; 80069; 80202; 82553; 82805; 83605; 83735; 83880; 84443; 84484; 84550; 85025; 85347; 85379; 85610; 85730; 87040; 87149; 87186; 87811; 92928; 92978; 92979; 93005; 93010; 93306; 93458; 94760; 96374; 97139; 99152; 99153; C1725; C1753; C1760; C1769; C1874; C1887; C1894; C9600; G0278; J0153; J0283; J0692; J1160; J1250; J1265; J1643; J1644; J1650; J1815; J1940; J2001; J2060; J2250; J2405; J2550; J2720; J3010; J3370; J3480; J3490; J7030; J7050; J7070; Q9967; S0028